=== PATIENT | male | born 1970 | race American Indian/Alaskan Native ===

== ENCOUNTER 2020-08-08 10:33 | Emergency (ER) | payer OTHER ==
[2020-08-08] MEDS ORDERED: SODIUM CHLORIDE 0.9% 1,000 ML IV STA (10:49)
[2020-08-08] MEDS ORDERED: SODIUM CHLORIDE 0.9% 500 ML 500 ML IV STA (10:49)
[2020-08-08] MEDS ORDERED: ONDANSETRON 4 MG/2 ML VIAL IVP STA (10:49)
[2020-08-08] MEDS ORDERED: KETOROLAC 15 MG/ML 1 ML VIAL IVP STA (10:49)
[2020-08-08 11:20] LABS: Basophils % (A) 0 %; Eosinophils # (A) 0.1 k/uL (0-0.7); Eosinophils % (A) 1 %; HCT 46.5 % (39.0-53.0); HGB 15.9 gm/dL (13.0-17.5); Lymphocytes # (A) 1.9 k/uL (1.0-4.8); Lymphocytes % (A) 15 %; MCH 31.2 pg (25.0-35.0); MCHC 34.3 g/dL (31.0-37.0); Mean Platelet Volume 6.6; Monocytes # (A) 0.9 k/uL (0-1.0); Monocytes % (A) 7 %; Neutrophils # (A) 9.7 k/uL (1.3-7.7); Neutrophils % (A) 76 %; Platelet Count 299 k/uL (150-450); RBC 5.11 m/uL (4.30-5.90); RDW 13.2 % (11.5-15.5); WBC 12.8 k/uL (3.8-10.6)
--- NOTE | 2020-08-08 11:23 | ED ---
Nausea/Vomiting/Diarrhea HPI - General Chief complaint: Nausea/Vomiting/Diarrhea Stated complaint: Vomiting, back pain Time Seen by Provider: 08/08/20 10:41 Source: patient, RN notes reviewed Mode of arrival: ambulatory Limitations: no limitations - History of Present Illness Initial comments: 50-year-old male presents emergency Department chief complaint abdominal pain. Patient states started last day or so. Patient states that he has not been able to keep anything down. Patient went of left flank pain. No history kidney stones he does have a history of hep C with treatment. He has no dysuria no hematuria no diarrhea no constipation. Patient states he still feels nauseated pain is currently 6/10. No prior abdominal surgeries. - Related Data Previous Rx's Medication Instructions Recorded Ondansetron Odt [Zofran Odt] 4 mg PO Q8HR PRN #10 tab 08/08/20 Allergies Allergy/AdvReac Type Severity Reaction Status Date / Time No Known Allergies Allergy Verified 08/08/20 10:39 Review of Systems ROS Statement: Those systems with pertinent positive or pertinent negative responses have been documented in the HPI. ROS Other: All systems not noted in ROS Statement are negative. Past Medical History Past Medical History: Liver Disease Additional Past Medical History / Comment(s): hep C History of Any Multi-Drug Resistant Organisms: None Reported Past Surgical History: No Surgical Hx Reported Past Psychological History: No Psychological Hx Reported Smoking Status: Former smoker Past Alcohol Use History: None Reported Past Drug Use History: Marijuana General Exam Limitations: no limitations General appearance: alert, in no apparent distress Head exam: Present: atraumatic, normocephalic, normal inspection Respiratory exam: Present: normal lung sounds bilaterally. Absent: respiratory distress, wheezes, rales, rhonchi, stridor Cardiovascular Exam: Present: regular rate, normal rhythm, normal heart sounds. Absent: systolic murmur, diastolic murmur, rubs, gallop, clicks GI/Abdominal exam: Present: soft, tenderness (Mild left lower quadrant), normal bowel sounds. Absent: distended, guarding, rebound, rigid Back exam: Absent: CVA tenderness (R), CVA tenderness (L) Neurological exam: Present: alert, oriented X3 Skin exam: Present: warm, dry, intact, normal color. Absent: rash Course Vital Signs 08/08/20 08/08/20 08/08/20 10:37 11:39 12:00 Temperature 98.2 F Pulse Rate 67 78 78 Respiratory 16 18 18 Rate Blood Pressure 141/90 115/82 115/82 O2 Sat by Pulse 97 99 99 Oximetry Medical Decision Making - Medical Decision Making CT was reviewed no acute abnormality. Patient - Lab Data Result diagrams: 08/08/20 11:01 08/08/20 11:35 Lab Results 08/08/20 08/08/20 08/08/20 Range/Units 11:01 11:01 11:35 WBC 12.8 H (3.8-10.6) k/uL RBC 5.11 (4.30-5.90) m/uL Hgb 15.9 (13.0-17.5) gm/dL Hct 46.5 (39.0-53.0) % MCV 91.0 (80.0-100.0) fL MCH 31.2 (25.0-35.0) pg MCHC 34.3 (31.0-37.0) g/dL RDW 13.2 (11.5-15.5) % Plt Count 299 (150-450) k/uL Neutrophils % 76 % Lymphocytes % 15 % Monocytes % 7 % Eosinophils % 1 % Basophils % 0 % Neutrophils # 9.7 H (1.3-7.7) k/uL Lymphocytes # 1.9 (1.0-4.8) k/uL Monocytes # 0.9 (0-1.0) k/uL Eosinophils # 0.1 (0-0.7) k/uL Basophils # 0.0 (0-0.2) k/uL Sodium 138 (137-145) mmol/L Potassium 3.8 (3.5-5.1) mmol/L Chloride 100 (98-107) mmol/L Carbon Dioxide 30 (22-30) mmol/L Anion Gap 8 mmol/L BUN 23 H (9-20) mg/dL Creatinine 0.71 (0.66-1.25) mg/dL Est GFR (CKD-EPI)AfAm >90 (>60 ml/min/1.73 sqM) Est GFR (CKD-EPI)NonAf >90 (>60 ml/min/1.73 sqM) Glucose 107 H (74-99) mg/dL Plasma Lactic Acid Cirilo 1.0 (0.7-2.0) mmol/L Calcium 9.1 (8.4-10.2) mg/dL Total Bilirubin 2.8 H (0.2-1.3) mg/dL AST 40 (17-59) U/L ALT 52 H (4-49) U/L Alkaline Phosphatase 63 (38-126) U/L Total Protein 7.6 (6.3-8.2) g/dL Albumin 4.6 (3.5-5.0) g/dL Amylase 67 (30-110) U/L Lipase 65 (23-300) U/L Urine Color Urine Appearance (Clear) Urine pH (5.0-8.0) Ur Specific [place] (1.001-1.035) Urine Protein (Negative) Urine Glucose (UA) (Negative) Urine Ketones (Negative) Urine Blood (Negative) Urine Nitrite (Negative) Urine Bilirubin (Negative) Urine Urobilinogen (<2.0) mg/dL Ur Leukocyte Esterase (Negative) Urine RBC (0-5) /hpf Urine WBC (0-5) /hpf Ur Squamous Epith Cells (0-4) /hpf Urine Mucus (None) /hpf 08/08/20 Range/Units 11:40 WBC (3.8-10.6) k/uL RBC (4.30-5.90) m/uL Hgb (13.0-17.5) gm/dL Hct (39.0-53.0) % MCV (80.0-100.0) fL MCH (25.0-35.0) pg MCHC (31.0-37.0) g/dL RDW (11.5-15.5) % Plt Count (150-450) k/uL Neutrophils % % Lymphocytes % % Monocytes % % Eosinophils % % Basophils % % Neutrophils # (1.3-7.7) k/uL Lymphocytes # (1.0-4.8) k/uL Monocytes # (0-1.0) k/uL Eosinophils # (0-0.7) k/uL Basophils # (0-0.2) k/uL Sodium (137-145) mmol/L Potassium (3.5-5.1) mmol/L Chloride (98-107) mmol/L Carbon Dioxide (22-30) mmol/L Anion Gap mmol/L BUN (9-20) mg/dL Creatinine (0.66-1.25) mg/dL Est GFR (CKD-EPI)AfAm (>60 ml/min/1.73 sqM) Est GFR (CKD-EPI)NonAf (>60 ml/min/1.73 sqM) Glucose (74-99) mg/dL Plasma Lactic Acid Cirilo (0.7-2.0) mmol/L Calcium (8.4-10.2) mg/dL Total Bilirubin (0.2-1.3) mg/dL AST (17-59) U/L ALT (4-49) U/L Alkaline Phosphatase (38-126) U/L Total Protein (6.3-8.2) g/dL Albumin (3.5-5.0) g/dL Amylase (30-110) U/L Lipase (23-300) U/L Urine Color Yellow Urine Appearance Cloudy (Clear) Urine pH 6.0 (5.0-8.0) Ur Specific [place] 1.039 H (1.001-1.035) Urine Protein 1+ H (Negative) Urine Glucose (UA) Negative (Negative) Urine Ketones 1+ H (Negative) Urine Blood Negative (Negative) Urine Nitrite Negative (Negative) Urine Bilirubin Negative (Negative) Urine Urobilinogen 2.0 (<2.0) mg/dL Ur Leukocyte Esterase Small H (Negative) Urine RBC 1 (0-5) /hpf Urine WBC 4 (0-5) /hpf Ur Squamous Epith Cells 1 (0-4) /hpf Urine Mucus Many H (None) /hpf Disposition Clinical Impression: Nausea & vomiting, Abdominal pain Disposition: HOME SELF-CARE Condition: Stable Instructions (If sedation given, give patient instructions): Abdominal Pain (ED) Additional Instructions: Please return to the Emergency Department if symptoms worsen or any other concerns. Prescriptions: Ondansetron Odt [Zofran Odt] 4 mg PO Q8HR PRN #10 tab PRN Reason: Nausea Is patient prescribed a controlled substance at d/c from ED?: No Referrals: Reynold Zamora MD [Primary Care Provider] - 1-2 days Time of Disposition: 12:16
--- NOTE | 2020-08-08 11:52 | CT ---
EXAMINATION TYPE: CT abdomen pelvis wo con DATE OF EXAM: 08/08/2020 COMPARISON: None INDICATION: Left flank pain DLP: 535.6 mGycm, Automated exposure control for dose reduction was used. CONTRAST: 0 mL of Isovue 300. Study performed without Oral Contrast TECHNIQUE: Axial images were obtained from above the diaphragm to the pubic rami in the axial plane a t 5 mm thick sections. Reconstructed images are reviewed on the computer in the coronal plane. FINDINGS: Limited CT sections are obtained the lung bases. The lung bases are clear. CT ABDOMEN: Liver: Normal Spleen: Normal Pancreas: Normal Adrenal glands: The adrenal glands are normal. Gallbladder: Normal Kidneys: No masses are evident. No hydronephrosis is present. No cysts are present. No obstructing renal stones are evident. Aorta: Normal Inferior vena cava: Normal. CT PELVIS: Loops of bowel within the abdomen and pelvis are normal. Study is without oral contrast limiting bowel evaluation. Appendix: Not identified. No suspicious tubular structures or inflammatory changes are evident. Urinary bladder: Normal. Genitourinary structures: Prostate appears somewhat prominent. Some calcification is present. Osseous structures: No suspicious lytic or sclerotic lesions. IMPRESSIONS: 1. No suspicious abnormality to account for left flank pain.
[2020-08-08 11:56] LABS: ALT 52 U/L (4-49); AST 40 U/L (17-59); African American GFR (CKD) >90 (>60 ml/min/1.73 sqM); Albumin 4.6 g/dL (3.5-5.0); Alkaline Phosphatase 63 U/L (38-126); Amylase 67 U/L (30-110); Anion Gap 8 mmol/L; Blood Urea Nitrogen 23 mg/dL (9-20); Calcium 9.1 mg/dL (8.4-10.2); Carbon Dioxide 30 mmol/L (22-30); Chloride 100 mmol/L (98-107); Glucose 107 mg/dL (74-99); Non-African American GFR(CKD) >90 (>60 ml/min/1.73 sqM); Potassium 3.8 mmol/L (3.5-5.1); Sodium 138 mmol/L (137-145); Total Bilirubin 2.8 mg/dL (0.2-1.3); Total Protein 7.6 g/dL (6.3-8.2)
[2020-08-08 12:00] LABS: Appearance,Urine Cloudy (Clear); Bilirubin,Urine Negative (Negative); Blood,Urine Negative (Negative); Color,Urine Yellow; Glucose,Urine (UA) Negative (Negative); Ketones,Urine 1+ (Negative); Leukocyte Esterase,Urine Small (Negative); Mucus,Urine Many /hpf; Nitrite,Urine Negative (Negative); Protein,Urine 1+ (Negative); RBC,Urine 1 /hpf (0-5); Specific Gravity,Urine 1.039 (1.001-1.035); Squamous Epithelial Cell,Urine 1 /hpf (0-4); WBC,Urine 4 /hpf (0-5)
[2020-08-08 12:49] VITALS: BP 119/76; PULSE 61; RESP 20; TEMP 98.5
== END 2020-08-08 12:49 | disposition home or self-care (01) ==
LOC: EC 10:33
DX: R10.9 Unspecified abdominal pain (principal); R11.2 Nausea with vomiting, unspecified; Z86.19 Personal history of other infectious and parasitic diseases; Z87.891 Personal history of nicotine dependence
CPT/HCPCS: 36415; 80053; 82150; 83605; 83690; 85025; 81001; 74176; 99284; 96374; 96375; 96361; J2405; J1885

== ENCOUNTER 2024-10-31 09:31 | Inpatient (IN) | payer OTHER ==
--- NOTE | 2024-10-31 09:52 | ED ---
Nausea/Vomiting/Diarrhea HPI - General Chief complaint: Nausea/Vomiting/Diarrhea Stated complaint: vomitting/dehydration Time Seen by Provider: 10/31/24 09:51 Source: patient, RN notes reviewed Mode of arrival: wheelchair Limitations: no limitations - History of Present Illness Initial comments: 54-year-old male presented to ER for evaluation of nausea, vomiting and cramping. Patient reports for the past 2 days he has been not been able to keep anything down. He states he will drink water or Pedialyte and will throw it up 20 minutes later. He is reporting generalized body cramps and abdominal cramping. Patient states he is "dehydrated". He has tried an [id number] medication that coats his stomach without relief. He is unsure of the exact name. He denies any fevers but admits to chills and night sweats. Reports diarrhea yesterday but denies melena or hematochezia. No hematemesis. He denies any chest pain, shortness of breath, cough, congestion, urinary complaints or peripheral edema. - Related Data Previous Rx's Medication Instructions Recorded Ondansetron Odt [Zofran Odt] 4 mg PO Q8HR PRN #10 tab 08/08/20 Allergies Allergy/AdvReac Type Severity Reaction Status Date / Time No Known Allergies Allergy Verified 10/31/24 09:33 Review of Systems ROS Statement: Those systems with pertinent positive or pertinent negative responses have been documented in the HPI. ROS Other: All systems not noted in ROS Statement are negative. Past Medical History Past Medical History: Liver Disease Additional Past Medical History / Comment(s): hep C History of Any Multi-Drug Resistant Organisms: None Reported Past Surgical History: No Surgical Hx Reported Past Psychological History: No Psychological Hx Reported Smoking Status: Former smoker Past Alcohol Use History: Occasional Past Drug Use History: Marijuana General Exam Limitations: no limitations General appearance: alert, in no apparent distress Respiratory exam: Present: normal lung sounds bilaterally. Absent: respiratory distress, wheezes, rales, rhonchi, stridor Cardiovascular Exam: Present: regular rate, normal rhythm, normal heart sounds. Absent: systolic murmur, diastolic murmur, rubs, gallop, clicks GI/Abdominal exam: Present: soft, tenderness (Generalized), normal bowel sounds Neurological exam: Present: alert, oriented X3, CN II-XII intact Psychiatric exam: Present: anxious (Patient pacing the stretcher upon evaluation) Skin exam: Present: warm, dry, intact, normal color. Absent: rash Course Vital Signs 10/31/24 10/31/24 09:34 13:24 Temperature 97.3 F L 97.4 F L Pulse Rate 88 74 Respiratory 20 16 Rate Blood Pressure 141/76 145/87 O2 Sat by Pulse 96 95 Oximetry - Reevaluation(s) Reevaluation #1: 10/31/24 11:59 Patient reevaluated. No signs of acute distress. Patient reported improvement of pain. Encourage patient to obtain urine sample. 10/31/24 12:[address] Estrella, [facility] physicians, for admission. Medical Decision Making - Medical Decision Making Was pt. sent in by a medical professional or institution (, PA, TRIM OPERATOR, urgent care, hospital, or fpc...) When possible be specific @ -No Did you speak to anyone other than the patient for history (EMS, parent, family, police, friend...)? What history was obtained from this source @ -No Did you review nursing and triage notes (agree or disagree)? Why? @ -I reviewed and agree with nursing and triage notes Were old charts reviewed (outside hosp., previous admission, EMS record, old EKG, old radiological studies, urgent care reports/EKG's, fpc records)? Report findings @ -No old charts were reviewed Differential Diagnosis (chest pain, altered mental status, abdominal pain women, abdominal pain men, vaginal bleeding, weakness, fever, dyspnea, syncope, headache, dizziness, GI bleed, back pain, seizure, CVA, palpatations, mental health, musculoskeletal)? @ -Differential Abdominal Pain Men:Appendicitis, cholecystitis, diverticulosis, ischemic bowel, pancreatitis, hepatitis, UTI, gastroenteritis, AAA, incarcerated hernia, bowel obstruction, constipation, inflammatory bowel, hepatitis, peptic ulcer disease, splenic infarction, perforated viscus, testicular torsion, this is not meant to be an all-inclusive list EKG interpreted by me (3pts min.). @ -None done X-rays interpreted by me (1pt min.). @ -CXR interpreted me negative for acute cardiopulmonary process. CT interpreted by me (1pt min.). @ -CT abdomen pelvis without contrast negative for acute intra-abdominal process. U/S interpreted by me (1pt. min.). @ -None done What testing was considered but not performed or refused? (CT, X-rays, U/S, labs)? Why? @ -None What meds were considered but not given or refused? Why? @ -None Did you discuss the management of the patient with other professionals (professionals i.e. , PA, TRIM OPERATOR, lab, RT, psych nurse, social media manager, outside rigger, teacher, cash management officer, disease case manager rn)? Give summary @ -Yes, case was discussed with sound physician, Dr. Estrella, for admission. Was smoking cessation discussed for >3mins.? @ -No Was critical care preformed (if so, how long)? @ -No Were there social determinants of health that impacted care today? How? (Homelessness, low income, unemployed, alcoholism, drug addiction, transportation, low edu. Level, literacy, decrease access to med. care, skilled nursing, rehab)? @ -No Was there de-escalation of care discussed even if they declined (Discuss DNR or withdrawal of care, Hospice)? DNR status @ -No What co-morbidities impacted this encounter? (DM, HTN, Smoking, COPD, CAD, Cancer, CVA, ARF, Chemo, Hep., AIDS, mental health diagnosis, sleep apnea, morbid obesity)? @ -History of hepatitis C, marijuana use Was patient admitted / discharged? Hospital course, mention meds given and route, prescriptions, significant lab abnormalities, going to OR and other pertinent info. @ -Admitted. 54-year-old male presenting to the ER for evaluation of muscle cramps, nausea and vomiting. Patient is extremely anxious on exam unable to sit still. No signs of acute respiratory distress. Vitals within normal limits. Exam remarkable for generalized abdominal tenderness to palpation with normal bowel sounds. There is no rebound or guarding. Laboratory studies obtained including CBC, CMP and lactic will be ordered along with IV fluids and pain cont rol. CBC remarkable for leukocytosis of 18.8 with a left shift. Hemoglobin 19.6. Lactic acid 5.9. Patient appears to be in renal failure with a GFR 17, creatinine 3.85 with a BUN of 45. Sodium 134, potassium 4.2, chloride 85, carbon dioxide 21. Total bilirubin 4.5. Creatinine kinase 939. Urinalysis with 12 WBCs and small leukocyte esterases. This will be sent for culture. UDS positive for opioids and THC. UDS was completed after patient was given IV Dilaudid for pain control. Viral swabs negative. CT abdomen pelvis and chest x-ray negative for acute process. Patient believed to be severely dehydrated causing hemoconcentration of laboratory studies. Patient received 2 L IV fluids in the ER. Patient does report improvement of symptoms after IV fluids, Toradol, Dilaudid and Zofran. No episodes of emesis in the ER. Admission was considered and discussed with Dr. Estrella, [facility] physicians for IV hydration and further evaluation of renal failure. Patient is agreeable for admission. Patient admitted in stable condition. Case discussed with the attending of Dr. Portillo. Undiagnosed new problem with uncertain prognosis? @ -No Drug Therapy requiring intensive monitoring for toxicity (Heparin, Nitro, Insulin, Cardizem)? @ -No Were any procedures done? @ -No Diagnosis/symptom? @ -Renal failure/lactic acidosis/dehydration Acute, or Chronic, or Acute on Chronic? @ -Acute Uncomplicated (without systemic symptoms) or Complicated (systemic symptoms)? @ -Complicated Side effects of treatment? @ -No Exacerbation, Progression, or Severe Exacerbation? @ -No Poses a threat to life or bodily function? How? (Chest pain, [place], [place], pneumonia, PE, COPD, DKA, ARF, appy, cholecystitis, CVA, Diverticulitis, Homicidal, Suicidal, threat to staff... and all critical care pts) @ -Yes, renal failure can lead to electrolyte abnormalities and lethal cardiac arrhythmias. - Lab Data Result diagrams: 10/31/24 10:00 10/31/24 10:00 Lab Results 10/31/24 10/31/24 10/31/24 Range/Units 10:00 10:00 10:00 WBC 18.8 H (3.8-10.6) k/uL RBC 6.04 H (4.30-5.90) m/uL Hgb 19.6 H* (13.0-17.5) gm/dL Hct 55.9 H (39.0-53.0) % MCV 92.5 (80.0-100.0) fL MCH 32.4 (25.0-35.0) pg MCHC 35.1 (31.0-37.0) g/dL RDW 13.3 (11.5-15.5) % Plt Count 362 (150-450) k/uL MPV 7.6 Neutrophils % 84 % Lymphocytes % 8 % Monocytes % 7 % Eosinophils % 1 % Basophils % 0 % Neutrophils # 15.7 H (1.3-7.7) k/uL Lymphocytes # 1.5 (1.0-4.8) k/uL Monocytes # 1.2 H (0-1.0) k/uL Eosinophils # 0.1 (0-0.7) k/uL Basophils # 0.0 (0-0.2) k/uL Sodium 134 L (137-145) mmol/L Potassium 4.2 (3.5-5.1) mmol/L Chloride 85 L (98-107) mmol/L Carbon Dioxide 21 L (22-30) mmol/L Anion Gap 28 mmol/L BUN 45 H (9-20) mg/dL Creatinine 3.85 H (0.66-1.25) mg/dL Est GFR (CKD-EPI)AfAm 19 (>60 ml/min/1.73 sqM) Est GFR (CKD-EPI)NonAf 17 (>60 ml/min/1.73 sqM) Glucose 208 H (74-99) mg/dL Lactic Ac Sepsis Rflx Plasma Lactic Acid Cirilo 5.9 H* (0.7-2.0) mmol/L Calcium 11.2 H (8.4-10.2) mg/dL Total Bilirubin 4.5 H (0.2-1.3) mg/dL AST 80 H (17-59) U/L ALT 89 H (4-49) U/L Alkaline Phosphatase 96 (38-126) U/L Creatine Kinase (55-170) U/L Total Protein 10.9 H (6.3-8.2) g/dL Albumin 6.6 H (3.5-5.0) g/dL Amylase 71 (30-110) U/L Lipase 54 (23-300) U/L Urine Color Urine Appearance (Clear) Urine pH (5.0-8.0) Ur Specific [place] (1.001-1.035) Urine Protein (Negative) Urine Glucose (UA) (Negative) Urine Ketones (Negative) Urine Blood (Negative) Urine Nitrite (Negative) Urine Bilirubin (Negative) Urine Urobilinogen (<2.0) mg/dL Ur Leukocyte Esterase (Negative) Urine RBC (0-5) /hpf Urine WBC (0-5) /hpf Ur Squamous Epith Cells (0-4) /hpf Calcium Oxalate Crystal (None) /hpf Urine Bacteria (None) /hpf Hyaline Casts (0-2) /lpf Urine Mucus (None) /hpf Urine Opiates Screen (NotDetected) Ur Oxycodone Screen (NotDetected) Urine Methadone Screen (NotDetected) Ur Barbiturates Screen (NotDetected) U Tricyclic Antidepress (NotDetected) Ur Phencyclidine Scrn (NotDetected) Ur Amphetamines Screen (NotDetected) U Methamphetamines Scrn (NotDetected) U Benzodiazepines Scrn (NotDetected) Urine Cocaine Screen (NotDetected) U Marijuana (THC) Screen (NotDetected) Influenza Type A (PCR) (Not Detectd) Influenza Type B (PCR) (Not Detectd) RSV (PCR) (Not Detectd) SARS-CoV-2 (PCR) (Not Detectd) 10/31/24 10/31/24 10/31/24 Range/Units 10:00 10:00 10:34 WBC (3.8-10.6) k/uL RBC (4.30-5.90) m/uL Hgb (13.0-17.5) gm/dL Hct (39.0-53.0) % MCV (80.0-100.0) fL MCH (25.0-35.0) pg MCHC (31.0-37.0) g/dL RDW (11.5-15.5) % Plt Count (150-450) k/uL MPV Neutrophils % % Lymphocytes % % Monocytes % % Eosinophils % % Basophils % % Neutrophils # (1.3-7.7) k/uL Lymphocytes # (1.0-4.8) k/uL Monocytes # (0-1.0) k/uL Eosinophils # (0-0.7) k/uL Basophils # (0-0.2) k/uL Sodium (137-145) mmol/L Potassium (3.5-5.1) mmol/L Chloride (98-107) mmol/L Carbon Dioxide (22-30) mmol/L Anion Gap mmol/L BUN (9-20) mg/dL Creatinine (0.66-1.25) mg/dL Est GFR (CKD-EPI)AfAm (>60 ml/min/1.73 sqM) Est GFR (CKD-EPI)NonAf (>60 ml/min/1.73 sqM) Glucose (74-99) mg/dL Lactic Ac Sepsis Rflx Y Plasma Lactic Acid Cirilo (0.7-2.0) mmol/L Calcium (8.4-10.2) mg/dL Total Bilirubin (0.2-1.3) mg/dL AST (17-59) U/L ALT (4-49) U/L Alkaline Phosphatase (38-126) U/L Creatine Kinase 939 H (55-170) U/L Total Protein (6.3-8.2) g/dL Albumin (3.5-5.0) g/dL Amylase (30-110) U/L Lipase (23-300) U/L Urine Color Urine Appearance (Clear) Urine pH (5.0-8.0) Ur Specific [place] (1.001-1.035) Urine Protein (Negative) Urine Glucose (UA) (Negative) Urine Ketones (Negative) Urine Blood (Negative) Urine Nitrite (Negative) Urine Bilirubin (Negative) Urine Urobilinogen (<2.0) mg/dL Ur Leukocyte Esterase (Negative) Urine RBC (0-5) /hpf Urine WBC (0-5) /hpf Ur Squamous Epith Cells (0-4) /hpf Calcium Oxalate Crystal (None) /hpf Urine Bacteria (None) /hpf Hyaline Casts (0-2) /lpf Urine Mucus (None) /hpf Urine Opiates Screen (NotDetected) Ur Oxycodone Screen (NotDetected) Urine Methadone Screen (NotDetected) Ur Barbiturates Screen (NotDetected) U Tricyclic Antidepress (NotDetected) Ur Phencyclidine Scrn (NotDetected) Ur Amphetamines Screen (NotDetected) U Methamphetamines Scrn (NotDetected) U Benzodiazepines Scrn (NotDetected) Urine Cocaine Screen (NotDetected) U Marijuana (THC) Screen (NotDetected) Influenza Type A (PCR) Not Detected (Not Detectd) Influenza Type B (PCR) Not Detected (Not Detectd) RSV (PCR) Not Detected (Not Detectd) SARS-CoV-2 (PCR) Not Detected (Not Detectd) 10/31/24 10/31/24 10/31/24 Range/Units 11:35 11:35 12:44 WBC (3.8-10.6) k/uL RBC (4.30-5.90) m/uL Hgb (13.0-17.5) gm/dL Hct (39.0-53.0) % MCV (80.0-100.0) fL MCH (25.0-35.0) pg MCHC (31.0-37.0) g/dL RDW (11.5-15.5) % Plt Count (150-450) k/uL MPV Neutrophils % % Lymphocytes % % Monocytes % % Eosinophils % % Basophils % % Neutrophils # (1.3-7.7) k/uL Lymphocytes # (1.0-4.8) k/uL Monocytes # (0-1.0) k/uL Eosinophils # (0-0.7) k/uL Basophils # (0-0.2) k/uL Sodium (137-145) mmol/L Potassium (3.5-5.1) mmol/L Chloride (98-107) mmol/L Carbon Dioxide (22-30) mmol/L Anion Gap mmol/L BUN (9-20) mg/dL Creatinine (0.66-1.25) mg/dL Est GFR (CKD-EPI)AfAm (>60 ml/min/1.73 sqM) Est GFR (CKD-EPI)NonAf (>60 ml/min/1.73 sqM) Glucose (74-99) mg/dL Lactic Ac Sepsis Rflx Plasma Lactic Acid Cirilo 2.1 H* (0.7-2.0) mmol/L Calcium (8.4-10.2) mg/dL Total Bilirubin (0.2-1.3) mg/dL AST (17-59) U/L ALT (4-49) U/L Alkaline Phosphatase (38-126) U/L Creatine Kinase (55-170) U/L Total Protein (6.3-8.2) g/dL Albumin (3.5-5.0) g/dL Amylase (30-110) U/L Lipase (23-300) U/L Urine Color Yellow Urine Appearance Turbid (Clear) Urine pH 5.5 (5.0-8.0) Ur Specific [place] 1.023 (1.001-1.035) Urine Protein 2+ H (Negative) Urine Glucose (UA) Trace H (Negative) Urine Ketones Negative (Negative) Urine Blood Moderate H (Negative) Urine Nitrite Negative (Negative) Urine Bilirubin 1+ H (Negative) Urine Urobilinogen 2.0 (<2.0) mg/dL Ur Leukocyte Esterase Small H (Negative) Urine RBC 2 (0-5) /hpf Urine WBC 12 H (0-5) /hpf Ur Squamous Epith Cells 4 (0-4) /hpf Calcium Oxalate Crystal Occasional H (None) /hpf Urine Bacteria Rare H (None) /hpf Hyaline Casts 75 H (0-2) /lpf Urine Mucus Many H (None) /hpf Urine Opiates Screen Detected H (NotDetected) Ur Oxycodone Screen Not Detected (NotDetected) Urine Methadone Screen Not Detected (NotDetected) Ur Barbiturates Screen Not Detected (NotDetected) U Tricyclic Antidepress Not Detected (NotDetected) Ur Phencyclidine Scrn Not Detected (NotDetected) Ur Amphetamines Screen Not Detected (NotDetected) U Methamphetamines Scrn Not Detected (NotDetected) U Benzodiazepines Scrn Not Detected (NotDetected) Urine Cocaine Screen Not Detected (NotDetected) U Marijuana (THC) Screen Detected H (NotDetected) Influenza Type A (PCR) (Not Detectd) Influenza Type B (PCR) (Not Detectd) RSV (PCR) (Not Detectd) SARS-CoV-2 (PCR) (Not Detectd) - Radiology Data Radiology results: report reviewed, image reviewed Disposition Clinical Impression: Dehydration, Acute renal failure, Lactic acidosis Disposition: ADMITTED IP TO THIS [facility] Condition: Stable Referrals: None,Stated [Primary Care Provider] - 1-2 days Forms: PH Area PCPs Time of Disposition: 13:27
[2024-10-31] MEDS: SODIUM CHLORIDE 0.9% 1,000 ML IV STA ×2 (10:10→10:45)
[2024-10-31] MEDS: ONDANSETRON 4 MG/2 ML VIAL IVP STA (10:11)
[2024-10-31] MEDS: FAMOTIDINE 20 MG/2 ML VIAL IV STA (10:11)
[2024-10-31 10:20] LABS: AST 80 U/L (17-59); African American GFR (CKD) 19 (>60 ml/min/1.73 sqM); Alkaline Phosphatase 96 U/L (38-126); Amylase 71 U/L (30-110); Anion Gap 28 mmol/L; Blood Urea Nitrogen 45 mg/dL (9-20); Calcium 11.2 mg/dL (8.4-10.2); Carbon Dioxide 21 mmol/L (22-30); Chloride 85 mmol/L (98-107); Glucose 208 mg/dL (74-99); Lipase 54 U/L (23-300); Non-African American GFR(CKD) 17 (>60 ml/min/1.73 sqM); Potassium 4.2 mmol/L (3.5-5.1); Sodium 134 mmol/L (137-145); Total Bilirubin 4.5 mg/dL (0.2-1.3)
[2024-10-31 10:32] LABS: Basophils % (A) 0 %; Eosinophils # (A) 0.1 k/uL (0-0.7); Eosinophils % (A) 1 %; Lymphocytes # (A) 1.5 k/uL (1.0-4.8); Lymphocytes % (A) 8 %; MCH 32.4 pg (25.0-35.0); MCHC 35.1 g/dL (31.0-37.0); MCV 92.5 fL (80.0-100.0); Mean Platelet Volume 7.6; Monocytes # (A) 1.2 k/uL (0-1.0); Monocytes % (A) 7 %; Neutrophils # (A) 15.7 k/uL (1.3-7.7); Neutrophils % (A) 84 %; Platelet Count 362 k/uL (150-450); RBC 6.04 m/uL (4.30-5.90); RDW 13.3 % (11.5-15.5); WBC 18.8 k/uL (3.8-10.6)
[2024-10-31 10:41] LABS: HCT 55.9 % (39.0-53.0)
[2024-10-31 10:43] LABS: HGB 19.6 gm/dL (13.0-17.5)
[2024-10-31 10:46] LABS: Total Protein 10.9 g/dL (6.3-8.2)
[2024-10-31 10:47] LABS: ALT 89 U/L (4-49)
[2024-10-31] MEDS: HYDROmorphone 0.5 MG/0.5 ML SYRINGE IVP STA (10:47)
[2024-10-31] MEDS: KETOROLAC 15 MG/ML 1 ML VIAL IVP STA (10:48)
[2024-10-31 11:10] LABS: Albumin 6.6 g/dL (3.5-5.0)
--- NOTE | 2024-10-31 11:24 | CT ---
EXAMINATION TYPE: CT abdomen pelvis wo con CT DLP: 506.9 mGycm, Automated exposure control for dose reduction was used. DATE OF EXAM: 10/31/2024 11:05 AM COMPARISON: CT abdomen pelvis 08/08/2020 CLINICAL INDICATION:Male, 54 years old with history of abd pain/transaminitis; ABD PAIN TECHNIQUE: Standard CT of the abdomen and pelvis without IV or oral contrast. Lack of IV or oral co ntrast limits evaluation of solid and hollow organ viscera. Coronal and sagittal reformats were perfo rmed. FINDINGS: LOWER CHEST: Unremarkable ABDOMEN LIVER: Unremarkable noncontrast appearance GALLBLADDER AND BILE DUCTS: Unremarkable noncontrast appearance PANCREAS: Unremarkable noncontrast appearance SPLEEN: Unremarkable noncontrast appearance ADRENAL GLANDS: Unremarkable noncontrast appearance. KIDNEYS AND URETERS: No evidence of hydronephrosis or renal calculus. No definitive calculus within the ureters. PELVIS BLADDER: Under distended, limiting evaluation. REPRODUCTIVE: Coarse calcifications of the prostate gland are identified. ABDOMEN & PELVIS STOMACH AND BOWEL: Stomach and duodenum are unremarkable. The appendix is within normal limits. No fo bobbi bowel wall thickening or surrounding inflammatory changes. No evidence of bowel obstruction. PERITONEUM: No evidence of pneumoperitoneum or free fluid. VASCULATURE: No evidence of aortic aneurysm. MUSCULOSKELETAL: No acute osseous abnormalities. Mild multilevel degenerative disc disease, most pron ounced at L5-S1. LYMPH NODES: No gross evidence for lymphadenopathy. SOFT TISSUE/ABDOMINAL WALL: Unremarkable IMPRESSION: No CT evidence for acute abdominal/pelvic process within limitations of a noncontrast exam. [facility], , 10/31/2024 11:22 AM
[2024-10-31 12:01] LABS: Appearance,Urine Turbid (Clear); Bacteria,Urine Rare /hpf; Bilirubin,Urine 1+ (Negative); Blood,Urine Moderate (Negative); Calcium Oxalate Crystals,Urine Occasional /hpf; Color,Urine Yellow; Glucose,Urine (UA) Trace (Negative); Hyaline Casts,Urine 75 /lpf (0-2); Ketones,Urine Negative (Negative); Leukocyte Esterase,Urine Small (Negative); Mucus,Urine Many /hpf; Nitrite,Urine Negative (Negative); PH, Urine 5.5 (5.0-8.0); Protein,Urine 2+ (Negative); RBC,Urine 2 /hpf (0-5); Specific Gravity,Urine 1.023 (1.001-1.035); Squamous Epithelial Cell,Urine 4 /hpf (0-4); WBC,Urine 12 /hpf (0-5)
[2024-10-31 12:04] LABS: Amphetamine Screen,Urine Not Detected (NotDetected); Barbiturate Screen,Urine Not Detected (NotDetected); Benzodiazepines Screen,Urine Not Detected (NotDetected); Cocaine Screen,Urine Not Detected (NotDetected); Methadone Screen, Urine Not Detected (NotDetected); Opiate Screen,Urine Detected (NotDetected); Oxycodone Screen, Urine Not Detected (NotDetected); Phencyclidine Screen,Urine Not Detected (NotDetected); Tricyclic Antidepressant,Urine Not Detected (NotDetected); Urn Cannabinoid Scrn Detected (NotDetected)
--- NOTE | 2024-10-31 12:45 | XR ---
EXAMINATION TYPE: XR chest 2V DATE OF EXAM: 10/31/2024 12:07 PM COMPARISON: None CLINICAL INDICATION: Male, 54 years old with history of leukocytosis; [facility] TECHNIQUE: XR chest 2V Frontal and lateral views of the chest. FINDINGS: Lungs/Pleura: There is no evidence of pleural effusion, focal consolidation, or pneumothorax. Pulmonary vascularity: Unremarkable. Heart/mediastinum: Cardiomediastinal silhouette is unremarkable. Musculoskeletal: No acute osseous pathology. IMPRESSION: No acute cardiopulmonary disease/process. [facility], , 10/31/2024 12:42 PM
[2024-10-31] MEDS ORDERED: ACETAMINOPHEN TAB 325 MG TAB PO PRN (13:19)
[2024-10-31] MEDS ORDERED: NALOXONE 0.4 MG/ML 1 ML VIAL IV PRN (13:19)
--- NOTE | 2024-10-31 13:28 | P.HPIM ---
History of Present Illness H&P Date: 10/31/24 History of Presenting Illness: Patient is a 54-year-old male with a past medical history of hepatitis C, former smoker, and daily cannabinoid use. He presented to the emergency department with a chief complaint of intractable nausea and vomiting along with diffuse abdominal cramping. Patient reports he has not been able to hold down a single sip of water over the past 2 days. He reports he has tried just sticking with a clear liquid diet with water or Pedialyte but again has projectile vomiting 20 minutes later. In addition patient reports generalized bodyaches and cramping. He reports taking Zofran at home with no relief and that he felt so dehydrated he knew he had to come to the emergency department for evaluation. Patient denies having any known fevers but does report chills and diaphoresis especially throughout the night. He does report having a couple episodes of diarrhea but denies any melena or hematochezia. Patient denies having any headache, lightheadedness, dizziness, chest pain, palpitations, shortness of breath, cough or congestion, or experiencing any numbness/tingling/weakness in his extremities. Patient does report he has been urinating just not as much as normal. Upon arrival to our facility, patient underwent evaluation in the emergency department. Vital signs upon arrival show blood pressure 141/76, heart rate 88, respiratory rate 20, temp 97.3 F, and SpO2 of 96% on room air. Labs completed and reviewed. CBC showing leukocytosis with WBC count of 18.8 and polycythemia with hemoglobin of 19.6. BMP showing hyponatremia with sodium of 134 and high anion gap metabolic alkalosis with chloride of 85, bicarb of 21, and anion gap of 28 and acute renal failure with BUN of 45, creatinine of 3.85, and GFR of 17. Blood glucose was 208. Initial lactic acid was 5.9. Liver profile showing total bili of 4.5, elevated AST of 80 and ALT of 89. Creatinine kinase was 939. Amylase and lipase normal findings. Urinalysis turbid positive for protein, trace glucose, blood, bilirubin, and 12 WBCs. Urine drug screen positive for opiates and marijuana. Influenza A, influenza B, RSV, and COVID PCR were negative. CT abdomen and pelvis was completed negative for acute intra-abdominal process, did reveal coarse calcifications of the prostate gland. Patient admitted under services at this time with consultation to nephrology. Review of systems: Pertinent positives and negatives as discussed in HPI, a complete review of systems was performed and all other systems are negative. Physical exam: Vital signs reviewed and stable. General: Nontoxic, no distress and appears stated age. Derm: Skin warm and dry, normal coloration for ethnicity. Head: Atraumatic, normocephalic and symmetric. Eyes: EOM's intact, no lid lag, and anicteric sclera Mouth: no lip lesions, mucus membranes moist Cardiovascular: regular rate and rhythm with normal S1S2, no murmur, positive posterior tibial pulses bilaterally, and cap refill < 2 seconds. Lungs: Respirations even, regular, and unlabored on room air. Lungs CTA bilaterally, no rhonchi, no rales, no wheezing, and no accessory muscle usage. Abdominal: Soft with diffuse abdominal pain reported upon palpation reports more of a cramping sensation and discomfort than pain, no guarding, no appreciable organomegaly Ext: ROM intact. No gross muscle atrophy, no edema, no contractures Neuro: Speech clear, face symmetrical and CN II-XII grossly intact with no noted focal neuro deficits Psych: Alert and oriented to person, place, time, and situation. Appropriate and pleasant affect. Assessment and Plan of Care: Severe dehydration Acute kidney injury Intractable nausea and vomiting, suspect viral gastroenteritis vs cyclic vomiting from cannabinoid hyperemesis High anion gap metabolic acidosis Leukocytosis, secondary to above Polycythemia secondary to hemoconcentration resulting from dehydration Rhabdomyolysis Lactic acidosis Transaminitis Hypochloremic hyponatremia Cannabinoid use disorder -Severe hydration with intractable nausea and vomiting suspected to be resulting from viral gastroenteritis vs cyclic vomiting cannabinoid hyperemesis vs alcoholic ketoacidosis however patient denies alcohol use reporting only occasional use. -Continue with aggressive IV fluid hydration 0.9% normal saline at 130 cc/h. -Compazine 10 mg IVP every 6 hours as needed for nausea and vomiting. -Protonix 40 mg IVP twice daily -Pain management Tylenol 650 mg every 6 hours as needed for mild to moderate pain and Dilaudid 0.5 mg IVP every 3 hours as needed for severe pain. -Avoid nephrotoxic medications. -Strict monitoring of I's and O's. -Consult to almond roaster. -Telemetry monitoring. -Obtain baseline EKG. -Replace for repeat CBC, CMP, and magnesium with a.m. labs. Coarse calcifications of the prostate gland -Recommend outpatient follow-up with urologist to undergo prostate exam and possible biopsies. Data and imaging reviewed: As stated above in HPI CODE STATUS: Full code DVT prophylaxis: Heparin Anticipated discharge date: Pending clinical course Anticipated discharge place: Home Patient was seen independently by Nurse Practitioner. This document was prepared using Exec dictation software. Please allow for errors in analytics intern while rare they do occur. Goran Schuler NP rendered care for this patient independently, reviewed the findings and plan as documented in the note above and agree with plan. I did not physically speak with or examine the patient on this date. Past Medical History Past Medical History: Liver Disease Additional Past Medical History / Comment(s): hep C History of Any Multi-Drug Resistant Organisms: None Reported Past Surgical History: No Surgical Hx Reported Past Psychological History: No Psychological Hx Reported Smoking Status: Former smoker Past Alcohol Use History: Occasional Past Drug Use History: Marijuana Medications and Allergies Home Medications Medication Instructions Recorded Confirmed Type Ondansetron Odt [Zofran Odt] 4 mg PO Q8HR PRN #10 tab 08/08/20 Rx Allergies Allergy/AdvReac Type Severity Reaction Status Date / Time No Known Allergies Allergy Verified 10/31/24 09:33 Physical Exam Vitals: Vital Signs Temp Pulse Resp BP Pulse Ox 10/31/24 13:24 97.4 F L 74 16 145/87 95 10/31/24 09:34 97.3 F L 88 20 141/76 96 Intake and Output 10/30/24 10/31/24 10/31/24 22:59 06:59 14:59 Other: Weight 74.843 kg Results CBC & Chem 7: 10/31/24 10:00 10/31/24 10:00 Labs: Abnormal Lab Results - Last 24 Hours (Table) 10/31/24 10/31/24 10/31/24 Range/Units 10:00 10:00 10:00 WBC 18.8 H (3.8-10.6) k/uL RBC 6.04 H (4.30-5.90) m/uL Hgb 19.6 H* (13.0-17.5) gm/dL Hct 55.9 H (39.0-53.0) % Neutrophils # 15.7 H (1.3-7.7) k/uL Monocytes # 1.2 H (0-1.0) k/uL Sodium 134 L (137-145) mmol/L Chloride 85 L (98-107) mmol/L Carbon Dioxide 21 L (22-30) mmol/L BUN 45 H (9-20) mg/dL Creatinine 3.85 H (0.66-1.25) mg/dL Glucose 208 H (74-99) mg/dL Plasma Lactic Acid Cirilo 5.9 H* (0.7-2.0) mmol/L Calcium 11.2 H (8.4-10.2) mg/dL Total Bilirubin 4.5 H (0.2-1.3) mg/dL AST 80 H (17-59) U/L ALT 89 H (4-49) U/L Creatine Kinase (55-170) U/L Total Protein 10.9 H (6.3-8.2) g/dL Albumin 6.6 H (3.5-5.0) g/dL Urine Protein (Negative) Urine Glucose (UA) (Negative) Urine Blood (Negative) Urine Bilirubin (Negative) Ur Leukocyte Esterase (Negative) Urine WBC (0-5) /hpf Calcium Oxalate Crystal (None) /hpf Urine Bacteria (None) /hpf Hyaline Casts (0-2) /lpf Urine Mucus (None) /hpf Urine Opiates Screen (NotDetected) U Marijuana (THC) Screen (NotDetected) 10/31/24 10/31/24 10/31/24 Range/Units 10:00 11:35 11:35 WBC (3.8-10.6) k/uL RBC (4.30-5.90) m/uL Hgb (13.0-17.5) gm/dL Hct (39.0-53.0) % Neutrophils # (1.3-7.7) k/uL Monocytes # (0-1.0) k/uL Sodium (137-145) mmol/L Chloride (98-107) mmol/L Carbon Dioxide (22-30) mmol/L BUN (9-20) mg/dL Creatinine (0.66-1.25) mg/dL Glucose (74-99) mg/dL Plasma Lactic Acid Cirilo (0.7-2.0) mmol/L Calcium (8.4-10.2) mg/dL Total Bilirubin (0.2-1.3) mg/dL AST (17-59) U/L ALT (4-49) U/L Creatine Kinase 939 H (55-170) U/L Total Protein (6.3-8.2) g/dL Albumin (3.5-5.0) g/dL Urine Protein 2+ H (Negative) Urine Glucose (UA) Trace H (Negative) Urine Blood Moderate H (Negative) Urine Bilirubin 1+ H (Negative) Ur Leukocyte Esterase Small H (Negative) Urine WBC 12 H (0-5) /hpf Calcium Oxalate Crystal Occasional H (None) /hpf Urine Bacteria Rare H (None) /hpf Hyaline Casts 75 H (0-2) /lpf Urine Mucus Many H (None) /hpf Urine Opiates Screen Detected H (NotDetected) U Marijuana (THC) Screen Detected H (NotDetected) 10/31/24 Range/Units 12:44 WBC (3.8-10.6) k/uL RBC (4.30-5.90) m/uL Hgb (13.0-17.5) gm/dL Hct (39.0-53.0) % Neutrophils # (1.3-7.7) k/uL Monocytes # (0-1.0) k/uL Sodium (137-145) mmol/L Chloride (98-107) mmol/L Carbon Dioxide (22-30) mmol/L BUN (9-20) mg/dL Creatinine (0.66-1.25) mg/dL Glucose (74-99) mg/dL Plasma Lactic Acid Cirilo 2.1 H* (0.7-2.0) mmol/L Calcium (8.4-10.2) mg/dL Total Bilirubin (0.2-1.3) mg/dL AST (17-59) U/L ALT (4-49) U/L Creatine Kinase (55-170) U/L Total Protein (6.3-8.2) g/dL Albumin (3.5-5.0) g/dL Urine Protein (Negative) Urine Glucose (UA) (Negative) Urine Blood (Negative) Urine Bilirubin (Negative) Ur Leukocyte Esterase (Negative) Urine WBC (0-5) /hpf Calcium Oxalate Crystal (None) /hpf Urine Bacteria (None) /hpf Hyaline Casts (0-2) /lpf Urine Mucus (None) /hpf Urine Opiates Screen (NotDetected) U Marijuana (THC) Screen (NotDetected)
[2024-10-31] MEDS: SODIUM CHLORIDE 0.9% 1,000 ML IV SCH (15:54)
[2024-10-31] MEDS ORDERED: PROCHLORPERAZINE INJ 10 MG/2 ML VIAL IVP PRN (16:24)
[2024-10-31] MEDS: PANTOPRAZOLE 40 MG/10 ML VIAL IVP SCH (20:12)
[2024-10-31] MEDS: HEPARIN SODIUM,PORCINE 5,000 UNIT/ML 1 ML VIAL SQ SCH (23:32)
[2024-11-01] MEDS: ONDANSETRON 4 MG/2 ML VIAL IVP PRN (06:35)
[2024-11-01] MEDS: HYDROmorphone 0.5 MG/0.5 ML SYRINGE IVP PRN (06:36)
--- NOTE | 2024-11-01 10:21 | P.NPCON ---
History of Present Illness - Reason for Consult acute renal failure - History of Present Illness Reason for consultation: Acute kidney injury History of present illness: Patient is a 54-year-old male seen in renal consultation for acute kidney injury. Patient's creatinine in July 2020 was 0.71 and was elevated at 3.85 this admission. Patient came to the hospital due to vomiting. Patient states Sunday night he ate some chili that was a couple of days old and also had beer. Patient states he woke up in the middle of the night with vomiting which persisted over the next 1 to 2 days. He denies diarrhea. He does admit to smoking marijuana for a long time. He received IV fluid boluses in the ER and is currently maintained on normal saline at 130 cc an hour. No edema. Admits to good urine output. No gross hematuria or dysuria. Denies history of diabetes or coronary artery disease. Denies use of nonsteroidals. No fever or chills. Vital signs are stable. General: No acute distress. HEENT: Head exam is unremarkable. LUNGS: No audible rhonchi or wheezes. HEART: Rate and Rhythm are regular. ABDOMEN: Nontender. EXTREMITITES: No edema. Past Medical History Past Medical History: Liver Disease Additional Past Medical History / Comment(s): hep C History of Any Multi-Drug Resistant Organisms: None Reported Past Surgical History: No Surgical Hx Reported Past Psychological History: No Psychological Hx Reported Smoking Status: Former smoker Past Alcohol Use History: Occasional Past Drug Use History: Marijuana Medications and Allergies Home Medications Medication Instructions Recorded Confirmed Type No Known Home Medications 10/31/24 10/31/24 History Allergies Allergy/AdvReac Type Severity Reaction Status Date / Time No Known Allergies Allergy Verified 10/31/24 20:10 Physical Exam Vitals: Vital Signs Temp Pulse Pulse Resp BP BP Pulse Ox 11/01/24 07:36 98.0 F 57 L 17 139/88 97 11/01/24 01:05 98.4 F 78 17 135/79 97 10/31/24 22:47 98.1 F 88 18 141/77 94 L 10/31/24 19:36 98.4 F 62 16 99 10/31/24 17:00 97.7 F 56 L 18 111/87 96 10/31/24 13:24 97.4 F L 74 16 145/87 95 Intake and Output 12/11/01/24 11/01/24 22:59 06:59 14:59 Other: # Voids 1 Results - Lab Results Most recent lab results Calcium 11.2 mg/dL (8.4-10.2) H 10/31/24 10:00 10/31/24 10:00 10/31/24 10:00 Assessment and Plan Plan: Assessment: 1. Acute kidney injury secondary to ATN secondary to hypovolemia. Creatinine 3.85 on admission. No hydronephrosis noted on CAT scan. 2. Hypovolemia secondary to vomiting. Gastroenteritis versus cannabinoid induced. 3. Hypercalcemia secondary to volume contraction. Albumin 6.6. Corrected calcium normal. 4. Metabolic acidosis secondary to lactic acidosis. 5. Hypovolemic hyponatremia. Plan: Maintain IV fluids. Decrease rate to 100 cc an hour. Avoid nephrotoxins, Including NSAIDs. Morning labs pending. Thank you for the consultation. I will continue to follow the patient with you during his hospital stay.
[2024-11-01 10:54] LABS: HCT 46.7 % (39.6-50.0); HGB 16.2 g/dL (13.0-17.0); MCHC 34.7 g/dL (32.0-37.0); MCV 89.3 FL (80.0-97.0); Mean Platelet Volume 9.1 FL (9.5-12.2); NRBC Per 100 WBC 0 X 10*3/uL (0.00-0.01); Platelet Count 276 X 10*3/uL (140-440); RBC 5.23 X 10*6/uL (4.40-5.60); RDW 12.9 % (11.5-14.5); WBC 12.49 X 10*3/uL (4.50-10.00)
[2024-11-01 11:49] LABS: Magnesium 2.1 mg/dL (1.5-2.4)
[2024-11-01 11:57] LABS: ALT 66 U/L (10-49); AST 76 U/L (14-35); Albumin 4.2 g/dL (3.8-4.9); Alkaline Phosphatase 71 U/L (41-126); BUN/Creat Ratio 30.82 Ratio (12.00-20.00); Blood Urea Nitrogen 33.9 mg/dL (9.0-27.0); Carbon Dioxide 25.5 mmol/L (21.6-31.8); Chloride 96 mmol/L (96-109); Globulin 2.8 g/dL (1.6-3.3); Glucose 111 mg/dL (70-110); Sodium 134 mmol/L (135-145); Total Bilirubin 3.3 mg/dL (0.3-1.2)
[2024-11-01 12:53] VITALS: BMI 25.8
--- NOTE | 2024-11-01 14:58 | P.PN ---
Subjective Progress Note Date: 11/01/24 Hospital Course: Patient is a 54-year-old male with a past medical history of hepatitis C, former smoker, and daily cannabinoid use. He presented to the emergency department with a chief complaint of intractable nausea and vomiting along with diffuse abdominal cramping. Patient reports he has not been able to hold down a single sip of water over the past 2 days. He reports he has tried just sticking with a clear liquid diet with water or Pedialyte but again has projectile vomiting 20 minutes later. In addition patient reports generalized bodyaches and cramping. He reports taking Zofran at home with no relief and that he felt so dehydrated he knew he had to come to the emergency department for evaluation. Patient denies having any known fevers but does report chills and diaphoresis especially throughout the night. He does report having a couple episodes of diarrhea but denies any melena or hematochezia. Patient denies having any headache, lig htheadedness, dizziness, chest pain, palpitations, shortness of breath, cough or congestion, or experiencing any numbness/tingling/weakness in his extremities. Patient does report he has been urinating just not as much as normal. Upon arrival to our facility, patient underwent evaluation in the emergency department. Vital signs upon arrival show blood pressure 141/76, heart rate 88, respiratory rate 20, temp 97.3 F, and SpO2 of 96% on room air. Labs completed and reviewed. CBC showing leukocytosis with WBC count of 18.8 and polycythemia with hemoglobin of 19.6. BMP showing hyponatremia with sodium of 134 and high anion gap metabolic alkalosis with chloride of 85, bicarb of 21, and anion gap of 28 and acute renal failure with BUN of 45, creatinine of 3.85, and GFR of 17. Blood glucose was 208. Initial lactic acid was 5.9. Liver profile showing total bili of 4.5, elevated AST of 80 and ALT of 89. Creatinine kinase was 939. Amylase and lipase normal findings. Urinalysis turbid positive for protein, trace glucose, blood, bilirubin, and 12 WBCs. Urine drug screen positive for opiates and marijuana. Influenza A, influenza B, RSV, and COVID PCR were negative. CT abdomen and pelvis was completed negative for acute intra- abdominal process, did reveal coarse calcifications of the prostate gland. Patient admitted under services at this time with consultation to nephrology. Physical exam: Patient was seen and fully evaluated at bedside this morning. He appears to be doing much better. Patient reports continued nausea but denies any further episodes of vomiting as nausea is currently controlled with antiemetics. Patient states for the first time in days he actually feels hungry. He denies having any abdominal pain or discomfort and denies any other complaints at this time. We will continue with IV fluid hydration for an additional 24 hours and slowly advance diet as patient tolerates. Vital signs reviewed and stable. General: Nontoxic, no distress and appears stated age. Derm: Skin warm and dry, normal coloration for ethnicity. Head: Atraumatic, normocephalic and symmetric. Eyes: EOM's intact, no lid lag, and anicteric sclera Mouth: no lip lesions, mucus membranes moist Cardiovascular: regular rate and rhythm with normal S1S2, no murmur, positive posterior tibial pulses bilaterally, and cap refill < 2 seconds. Lungs: Respirations even, regular, and unlabored on room air. Lungs CTA bilaterally, no rhonchi, no rales, no wheezing, and no accessory muscle usage. Abdominal: Soft with diffuse abdominal pain reported upon palpation reports more of a cramping sensation and discomfort than pain, no guarding, no appreciable organomegaly Ext: ROM intact. No gross muscle atrophy, no edema, no contractures Neuro: Speech clear, face symmetrical and CN II-XII grossly intact with no noted focal neuro deficits Psych: Alert and oriented to person, place, time, and situation. Appropriate and pleasant affect. Assessment and Plan of Care: Severe dehydration Acute kidney injury, secondary to above Intractable nausea and vomiting, suspect viral gastroenteritis vs cyclic vomiti ng from cannabinoid hyperemesis High anion gap metabolic acidosis, significantly improved with IV fluid hydration Leukocytosis, secondary to above and improving Polycythemia secondary to hemoconcentration resulting from dehydration, resolved with IV fluid hydration Rhabdomyolysis Lactic acidosis, resolved with IV fluid hydration Transaminitis in patient with known history of hepatitis C, improving Hypochloremic hyponatremia, improving with IV fluid hydration Cannabinoid use disorder -Continue with with rate decreased to 100 cc/h for the next 24 hours IV fluid hydration 0.9% normal saline at 130 cc/h. -Compazine 10 mg IVP every 6 hours as needed for nausea and vomiting. -Protonix 40 mg IVP twice daily -Pain management Tylenol 650 mg every 6 hours as needed for mild to moderate pain and Dilaudid 0.5 mg IVP every 3 hours as needed for severe pain. -Avoid nephrotoxic medications. -Strict monitoring of I's and O's. -Nephrology following, discussed plan of care -Telemetry monitoring. -Advance diet as patient tolerates Coarse calcifications of the prostate gland -Recommend outpatient follow-up with urologist to undergo prostate exam and possible biopsies. Data and imaging reviewed: Repeat morning labs reviewed. Showing improvement of leukocytosis from previous 18.8 down to 12.49 this morning and resolution of polycythemia with hemoglobin decreasing from 19.6 down to 16.2. BMP showing continued hyponatremia with sodium of 134 but resolution of hypochloremia with chloride of 96 and bicarb improving to 25.5. Anion gap decreasing from 28 down to 12.50 this morning. Renal function significantly improving from previous BUN of 45, creatinine of 3.85, GFR of 17 down to BUN of 33.9, creatinine of 1.1, and GFR of 80 this morning. Magnesium 2.1. Liver profile showing continued elevated but improving liver enzymes with total bili of 3.3, AST of 76, and alkaline phosphatase of 66. CODE STATUS: Full code DVT prophylaxis: Heparin Anticipated discharge date: Plan for likely discharge tomorrow morning Anticipated discharge place: Home Patient was seen independently by Nurse Practitioner. This document was prepared using [employer] dictation software. Please allow for errors in hydroelectric systems technician while rare they do occur. Goran Schuler BUILDING INSULATION INSTALLER rendered care for this patient independently, reviewed the findings and plan as documented in the note above and agree with plan. I did not physically speak with or examine the patient on this date. Objective - Vital Signs Vital signs: Vital Signs Temp 98.4 F 11/01/24 01:05 Pulse 78 11/01/24 01:05 Resp 17 11/01/24 01:05 BP 135/79 11/01/24 01:05 Pulse Ox 97 11/01/24 01:05 FiO2 Intake & Output 10/31/24 11/01/24 11/01/24 18:59 06:59 18:59 Weight 74.843 kg Other: # Voids 1 - Labs CBC & Chem 7: 11/01/24 03:16 11/01/24 03:16 Labs: Abnormal Lab Results - Last 24 Hours (Table) 10/31/24 10/31/24 10/31/24 Range/Units 10:00 10:00 10:00 WBC 18.8 H (3.8-10.6) k/uL RBC 6.04 H (4.30-5.90) m/uL Hgb 19.6 H* (13.0-17.5) gm/dL Hct 55.9 H (39.0-53.0) % Neutrophils # 15.7 H (1.3-7.7) k/uL Monocytes # 1.2 H (0-1.0) k/uL Sodium 134 L (137-145) mmol/L Chloride 85 L (98-107) mmol/L Carbon Dioxide 21 L (22-30) mmol/L BUN 45 H (9-20) mg/dL Creatinine 3.85 H (0.66-1.25) mg/dL Glucose 208 H (74-99) mg/dL Plasma Lactic Acid Cirilo 5.9 H* (0.7-2.0) mmol/L Calcium 11.2 H (8.4-10.2) mg/dL Total Bilirubin 4.5 H (0.2-1.3) mg/dL AST 80 H (17-59) U/L ALT 89 H (4-49) U/L Creatine Kinase (55-170) U/L Total Protein 10.9 H (6.3-8.2) g/dL Albumin 6.6 H (3.5-5.0) g/dL Urine Protein (Negative) Urine Glucose (UA) (Negative) Urine Blood (Negative) Urine Bilirubin (Negative) Ur Leukocyte Esterase (Negative) Urine WBC (0-5) /hpf Calcium Oxalate Crystal (None) /hpf Urine Bacteria (None) /hpf Hyaline Casts (0-2) /lpf Urine Mucus (None) /hpf Urine Opiates Screen (NotDetected) U Marijuana (THC) Screen (NotDetected) 10/31/24 10/31/24 10/31/24 Range/Units 10:00 11:35 11:35 WBC (3.8-10.6) k/uL RBC (4.30-5.90) m/uL Hgb (13.0-17.5) gm/dL Hct (39.0-53.0) % Neutrophils # (1.3-7.7) k/uL Monocytes # (0-1.0) k/uL Sodium (137-145) mmol/L Chloride (98-107) mmol/L Carbon Dioxide (22-30) mmol/L BUN (9-20) mg/dL Creatinine (0.66-1.25) mg/dL Glucose (74-99) mg/dL Plasma Lactic Acid Cirilo (0.7-2.0) mmol/L Calcium (8.4-10.2) mg/dL Total Bilirubin (0.2-1.3) mg/dL AST (17-59) U/L ALT (4-49) U/L Creatine Kinase 939 H (55-170) U/L Total Protein (6.3-8.2) g/dL Albumin (3.5-5.0) g/dL Urine Protein 2+ H (Negative) Urine Glucose (UA) Trace H (Negative) Urine Blood Moderate H (Negative) Urine Bilirubin 1+ H (Negative) Ur Leukocyte Esterase Small H (Negative) Urine WBC 12 H (0-5) /hpf Calcium Oxalate Crystal Occasional H (None) /hpf Urine Bacteria Rare H (None) /hpf Hyaline Casts 75 H (0-2) /lpf Urine Mucus Many H (None) /hpf Urine Opiates Screen Detected H (NotDetected) U Marijuana (THC) Screen Detected H (NotDetected) 10/31/24 Range/Units 12:44 WBC (3.8-10.6) k/uL RBC (4.30-5.90) m/uL Hgb (13.0-17.5) gm/dL Hct (39.0-53.0) % Neutrophils # (1.3-7.7) k/uL Monocytes # (0-1.0) k/uL Sodium (137-145) mmol/L Chloride (98-107) mmol/L Carbon Dioxide (22-30) mmol/L BUN (9-20) mg/dL Creatinine (0.66-1.25) mg/dL Glucose (74-99) mg/dL Plasma Lactic Acid Cirilo 2.1 H* (0.7-2.0) mmol/L Calcium (8.4-10.2) mg/dL Total Bilirubin (0.2-1.3) mg/dL AST (17-59) U/L ALT (4-49) U/L Creatine Kinase (55-170) U/L Total Protein (6.3-8.2) g/dL Albumin (3.5-5.0) g/dL Urine Protein (Negative) Urine Glucose (UA) (Negative) Urine Blood (Negative) Urine Bilirubin (Negative) Ur Leukocyte Esterase (Negative) Urine WBC (0-5) /hpf Calcium Oxalate Crystal (None) /hpf Urine Bacteria (None) /hpf Hyaline Casts (0-2) /lpf Urine Mucus (None) /hpf Urine Opiates Screen (NotDetected) U Marijuana (THC) Screen (NotDetected)
[2024-11-01 15:34] VITALS: BP 140/78; PULSE 66; RESP 16; TEMP 98.4
--- NOTE | 2024-11-01 16:57 | P.DS ---
Providers Date of admission: 10/31/24 13:23 Expected date of discharge: 11/01/24 Attending physician: Vinay Estrella Consults: 10/31/24 13:24 Consult Physician Urgent Consulting Provider: Sanjay Eisenberg Consult Reason/Comments: renal failure Do you want consulting provider notified?: Yes Primary care physician: Stated None Hospital Course: Patient left AGAINST MEDICAL ADVICE on 11/01/2024 at 4:37 PM Discharge Diagnosis: Severe dehydration Acute kidney injury, secondary to above Intractable nausea and vomiting, suspect viral gastroenteritis vs cyclic vomiting from cannabinoid hyperemesis High anion gap metabolic acidosis, significantly improved with IV fluid hydration Leukocytosis, secondary to above and improving Polycythemia secondary to hemoconcentration resulting from dehydration, resolved with IV fluid hydration Rhabdomyolysis, mild secondary to dehydration Lactic acidosis, resolved with IV fluid hydration Transaminitis in patient with known history of hepatitis C, improving Hypochloremic hyponatremia, improving with IV fluid hydration Cannabinoid use disorder Coarse calcifications of the prostate gland. Recommend outpatient follow-up with urologist to undergo prostate exam and possible biopsies. Hospital Course: Patient is a 54-year-old male with a past medical history of hepatitis C, former smoker, and daily cannabinoid use. He presented to the emergency department with a chief complaint of intractable nausea and vomiting along with diffuse abdominal cramping. Patient reports he has not been able to hold down a single sip of water over the past 2 days. He reports he has tried just sticking with a clear liquid diet with water or Pedialyte but again has projectile vomiting 20 minutes later. In addition patient reports generalized bodyaches and cramping. He reports taking Zofran at home with no relief and that he felt so dehydrated he knew he had to come to the emergency department for evaluation. Patient denies having any known fevers but does report chills and diaphoresis especially throughout the night. He does report having a couple episodes of diarrhea but denies any melena or hematochezia. Patient denies having any headache, lightheadedness, dizziness, chest pain, palpitations, shortness of breath, cough or congestion, or experiencing any numbness/tingling/weakness in his extremities. Patient does report he has been urinating just not as much as normal. Upon arrival to our facility, patient underwent evaluation in the emergency department. Vital signs upon arrival show blood pressure 141/76, heart rate 88, respiratory rate 20, temp 97.3 F, and SpO2 of 96% on room air. Labs completed and reviewed. CBC showing leukocytosis with WBC count of 18.8 and polycythemia with hemoglobin of 19.6. BMP showing hyponatremia with sodium of 134 and high anion gap metabolic alkalosis with chloride of 85, bicarb of 21, and anion gap of 28 and acute renal failure with BUN of 45, creatinine of 3.85, and GFR of 17. Blood glucose was 208. Initial lactic acid was 5.9. Liver profile showing total bili of 4.5, elevated AST of 80 and ALT of 89. Creatinine kinase was 939. Amylase and lipase normal findings. Urinalysis turbid positive for protein, trace glucose, blood, bilirubin, and 12 WBCs. Urine drug screen positive for opiates and marijuana. Influenza A, influenza B, RSV, and COVID PCR were negative. CT abdomen and pelvis was completed negative for acute intra-abdominal process, did reveal coarse calcifications of the prostate gland. Patient was admitted under services at this time with consultation to nephrology. Dehydration, renal function, lactic acidosis, polycythemia, leukocytosis, hypochloremic hyponatremia all improving with IV fluid hydration. Plan was to continue IV fluid hydration for an additional 24 hours as recommended by nephrology and we were slowly advancing patient's diet. Received notification from RN on 11/01/2024 at 4:44 PM that patient left AGAINST MEDICAL ADVICE at 4:37 PM. Not able to evaluate or talk with patient prior to his leaving as received notification after patient had already left. Patient left AGAINST MEDICAL ADVICE on 11/01/2024 at 4:37 PM. Patient was seen independently by Nurse Practitioner. This document was prepared using [employer] dictation software. Please allow for errors in foundry operator while rare they do occur. Goran Schuler NP rendered care for this patient independently, reviewed the findings and plan as documented in the note above. I did not physically speak with or examine the patient on this date. Patient Condition at Discharge: Undetermined Plan - Discharge Summary Discharge Rx Participant: No New Discharge Prescriptions: No Action No Known Home Medications Discharge Medication List No Known Home Medications 10/31/24 [History] Follow up Appointment(s)/Referral(s): Dayron Moore MD [STAFF PHYSICIAN] - 1 Week [facility] [NON-STAFF] - 1 Week
== END 2024-11-01 17:07 | disposition left against medical advice (07) | DRG 469 ==
LOC: EC 09:31 → 4SSUR 13:23
PROVIDERS: ADMIT Student in an Organized Health Care Education/Training Program; ATTEND Student in an Organized Health Care Education/Training Program
DX: N17.0 Acute kidney failure with tubular necrosis (principal); N42.89 Other specified disorders of prostate; Z53.29 Procedure and treatment not carried out because of patient's decision for other reasons; M62.82 Rhabdomyolysis; Z11.52 Encounter for screening for COVID-19; E86.0 Dehydration; F12.10 Cannabis abuse, uncomplicated; E87.8 Other disorders of electrolyte and fluid balance, not elsewhere classified; Z87.891 Personal history of nicotine dependence; E87.1 Hypo-osmolality and hyponatremia; E87.4 Mixed disorder of acid-base balance; E86.1 Hypovolemia; E83.52 Hypercalcemia; D75.1 Secondary polycythemia; D72.829 Elevated white blood cell count, unspecified; B19.20 Unspecified viral hepatitis C without hepatic coma
CPT/HCPCS: 36415; 71046; 74176; 80053; 80306; 81001; 82150; 82550; 83605; 83690; 83735; 85025; 85027; 87086; 87636; 96361; 96374; 96375; 99285